=== PATIENT | female | born 1950 | race Two or more races ===

== ENCOUNTER → 2023-12-12 | Outpatient (CLI) | payer OTHER, SELFPAY | END | disposition home or self-care (01) | LOC: SLDO 15:38 | PROVIDERS: PCP Family Medicine; Referring Provider Family Medicine; Visit Provider Family Medicine | DX: N39.0 Urinary tract infection, site not specified (principal) | CPT/HCPCS: 87086 ==

== ENCOUNTER → 2024-02-16 | Outpatient (CLI) | payer OTHER, SELFPAY ==
--- NOTE | 2024-02-16 14:00 | XR_ITS ---
Examination: Bone densitometry Date and time of exam:February 16, 2024 1423 hours INDICATIONS: Hysterectomy age 51 vitamin D 3 months Technique: Lumbar spine and hip total bone mineralization values of an calculated. Peak reference and age match control results have been displayed. Findings: Lumbar spine total bone mineralization is1.213 gm/cm2. This is 1.5 standard deviations above peak reference. This is 3.7 standard deviations above age-matched controls. Hip total bone mineralization is 1.065 gm/cm2 This is 0.8 standard deviations above peak reference. This is 2.3 standard deviations above age-matched controls Impression: There is normal mineralization based on lumbar spine measurements. There is normal mineralization based on hip measurements Lumbar mineralization is increased 5.4% compared with July 16, 2021 Hip mineralization is decreased 3.0% compared with July 16, 2021
--- NOTE | 2024-02-16 14:15 | XR_ITS ---
Examination: Screening digital mammography, bilateral Computer aided detection 3-D breast Tomosynthesis, bilateral Date and time of exam: February 16, 2024 1406 hours Compared to mammograms dating to October 30, 2007 Indication: Screening Technique: Nonmagnified MLO, CC views of the breasts to been obtained, reconstructed from 3-D Tomosynthesis images. R2 computer aided detection program utilized for evaluation of suspicious masses and/or abnormal calcifications. 3-D Tomosynthesis images obtained. Findings: The breasts are heterogeneously dense, which may obscure small masses 14 mm focal asymmetry upper outer right breast posterior depth Benign calcifications Impression: BI-RADS Category 0: Incomplete: Need additional imaging evaluation 14 mm focal asymmetry upper outer right breast posterior depth, recommend follow-up spot tomographic views of this asymmetry as well as right breast sonography to complete the workup.
== END | disposition home or self-care (01) ==
LOC: CDIM 13:59
PROVIDERS: Referring Provider Nurse Anesthetist, Certified Registered; Visit Provider Nurse Anesthetist, Certified Registered
DX: Z12.31 Encounter for screening mammogram for malignant neoplasm of breast (principal); R92.8 Other abnormal and inconclusive findings on diagnostic imaging of breast; N64.89 Other specified disorders of breast
CPT/HCPCS: 77063; 77067; 77080

== ENCOUNTER → 2024-03-04 | Outpatient (CLI) | payer OTHER, SELFPAY ==
--- NOTE | 2024-03-04 09:45 | XR_ITS ---
Examination: Breast ultrasound, unilateral, right complete Date and time of exam: March 04, 2024 0939 hours INDICATIONS: Mammogram February 16, 2024 14 mm focal asymmetry upper outer right breast posterior depth Technique: Real-time mitchell scale ultrasonographic imaging performed right breast including all 4 quadrants as well as nipple retroareolar and axillary region. Findings: No cystic or solid mass IMPRESSION: BI-RADS Category 1: Negative study
== END | disposition home or self-care (01) ==
PROVIDERS: PCP Family Medicine; Referring Provider Internal Medicine; Visit Provider Internal Medicine
DX: R92.8 Other abnormal and inconclusive findings on diagnostic imaging of breast (principal)
CPT/HCPCS: 76641

== ENCOUNTER 2024-03-12 21:33 | Observation (INO) | payer OTHER, SELFPAY ==
[2024-03-12 21:34] VITALS: BMI 36.9
[2024-03-12 21:39] VITALS: BP 112/80; PULSE 82; RESP 18; TEMP 36.6; O2SAT 97
--- NOTE | 2024-03-12 22:07 | XR_ITS ---
Examination: PA chest single view TECHNIQUE: Upright PA chest single view Exam done: March 12, 2024 10:45 PM Comparison September 25, 2023 INDICATIONS: Epigastric pain today. FINDINGS: Normal heart size Lungs are clear. The osseous structures are intact IMPRESSION: No active disease
--- NOTE | 2024-03-12 22:07 | EKG_ITS ---
[facility] Test Date: 2024-03-12 Pat Name: ADRIANO GREER Department: Room: - Gender: Female Survey Project Manager: : 1950 Requested By: Chris Johnson Order Number: [id number] Reading MD: Chris Johnson Measurements Intervals [place] Rate: 82 P: -39 ME: 158 QRS: -18 QRSD: 94 T: -5 QT: 366 QTc: 428 Interpretive Statements SINUS RHYTHM LOW QRS VOLTAGE IN PRECORDIAL LEADS [QRS DEFLECTION < 1.0 mV IN CHEST LEADS] VOLTAGE CRITERIA FOR LVH [MEETS CRITERIA IN ONE OF: R(aVL), S(V1), R(V5), R(V5/V6)+S(V1)] POSSIBLE ANTERIOR MYOCARDIAL INFARCTION , OF INDETERMINATE AGE [30 ms Q WAVE IN V3/V4, OR R < 0.2 mV IN V4] Compared to ECG 09/29/2022 14:47:46 Myocardial infarct finding now present First degree AV block no longer present /store/S0/[id number]/ecg/[id number].pdf
--- NOTE | 2024-03-12 22:07 | PD.EDRME ---
Rapid Medical Screening Exam RME Arrival date/time: 03/12/24 21:33 73F with history of HTN presents to ED with several days of lower chest/epigastric pain and some N/V. Patient has some RLE swelling due to recent varicose vein procedure there. Patient denies SOB and URI symptoms. Chief Complaint: Abdominal Pain Vital signs: Vital Signs Temperature 97.8 F 03/12/24 21:39 Pulse Rate 82 03/12/24 21:39 Respiratory Rate 18 03/12/24 21:39 Blood Pressure 112/80 03/12/24 21:39 Pulse Oximetry (%) 97 03/12/24 21:39 Oxygen Delivery Method Room Air 03/12/24 21:39
[2024-03-12 22:33] LABS: Basophils # (Auto) 0.1 Thou/mm3 (0.0-0.2); Basophils % (Auto) 0 % (0-2.5); Eosinophils # (Auto) 0.1 Thou/mm3 (0.0-0.5); Eosinophils % (Auto) 0 % (0-10); Hematocrit 44.8 % (36.0-46.0); Hemoglobin 15.3 g/dL (12.0-16.0); Immature Granulocytes % (Auto) 0 % (0-0); Immature Granulocytes Auto 0.05 Thou/mm3 (0.00-0.00); Lymphocytes # (Auto) 1.3 Thou/mm3 (1.0-4.8); Lymphocytes % (Auto) 9 % (10-50); Mean Corpuscular HGB Conc 34.2 g/dl (31.0-37.0); Mean Corpuscular Hemoglobin 30.6 pg (25.0-35.0); Mean Corpuscular Volume 90 fL (80-100); Monocytes # (Auto) 0.8 Thou/mm3 (0.0-0.8); Monocytes % (Auto) 5 % (0-12); Neutrophils # (Auto) 12.4 Thou/mm3 (1.8-7.7); Neutrophils % (Auto) 85 % (37-80); Nucleated Red Blood Cell % 0 /100 WBC (0); Platelet Count 217 Thou/mm3 (140-440); White Blood Count 14.5 Thou/mm3 (3.6-11.0)
[2024-03-12 22:54] LABS: Alanine Aminotransferase 15 U/L (10-49); Albumin, Serum 4.4 gm/dL (3.4-4.8); Albumin/Globulin Ratio 1.6 (1.2-2.2); Alkaline Phosphatase 84 U/L (46-116); Anion Gap 10 (7-16); Aspartate Amino Transferase 19 U/L (0-34); BUN/Creatinine Ratio 27 Ratio (12-20); Bilirubin,Total 0.6 mg/dL (0.3-1.2); Blood Urea Nitrogen 24 mg/dL (9-23); Calcium 9.8 mg/dL (8.3-10.6); Calcium (Corrected) 9.8 mg/dL (8.5-10.1); Carbon Dioxide 26.1 mMol/L (20.0-31.0); Chloride 100 mMol/L (98-107); Creatinine (Component) 0.9 mg/dL (0.6-1.3); Estimated Creatinine Clearance 55.7 mL/min (>60); Globulin 2.7 gm/dL (2.3-3.5); Glucose 124 mg/dL (74-106); Lipase 44 U/L (12-53); Osmolality,Calculated 276 (275-295); Potassium 3.9 mMol/L (3.4-5.1); Sodium 136 mMol/L (136-145); Total Protein 7.1 gm/dL (5.7-8.2); Troponin I < 0.020 ng/mL (0.0-0.045); eGFR > 60 See Note
[2024-03-12 23:21] LABS: Collection Type, Urine Clean Catch
[2024-03-12 23:26] LABS: Bilirubin,Urine Negative (Negative); Blood,Urine 1+ (Negative); Clarity,Urine Turbid (Clear/Hazy); Color,Urine Yellow (Lt Yel-Yel); Glucose, Urine Negative (Negative); Hyaline Casts,Urine < 1 /hpf (0-1); Ketones,Urine 1+ (Negative); Leukocyte Esterase,Urine Negative (Negative); Nitrite,Urine Negative (Negative); Protein,Urine 1+ (Neg - Trace); RBC,Urine 4 /hpf (0-3); Specific Gravity,Urine 1.031 (1.001-1.035); Squamous Epithelial Cell,Urine 10 /hpf (0-5); Urobilinogen,Urine Negative mg/dL (0.0-1.0); WBC,Urine 2 /hpf (0-5)
[2024-03-12 23:33] LABS: Amphetamine/Methamp Scrn,U Negative (Negative); Barbiturate Screen,Urine Negative (Negative); Benzodiazepines Screen,Urine Negative (Negative); Benzoylecgonine Screen, Ur Negative (Negative); Fentanyl Screen,Urine Negative (Negative); Opiate Screen,Urine Negative (Negative); THC Screen,Urine Negative (Negative)
--- NOTE | 2024-03-12 23:38 | XR_ITS ---
Examination: CT abdomen with intravenous contrast CT pelvis with intravenous contrast 2-D coronal reconstructions 2-D sagittal reconstructions Date and time of exam: March 13, 2024 at 0604 hours Comparison November 28, 2020 INDICATIONS: Epigastric pain beginning 2 days ago CTDI: vol (mGy) 25.2 DLP: (mGycm) 780 Technique: Multiple axial sections of the abdomen and pelvis have been obtained. 64 slice high-resolution scanner used. 3 mm axial sections have been obtained, post intravenous injection of 60 cc Isovue-300 2-D sagittal, coronal reconstructions obtained. Low dose protocols were performed. One or more of the following dose reduction techniques were used; automated exposure control, adjustment of the mA and/or KV according to patient size, use of iterative reconstruction technique. Findings: No focal liver lesions Gallstones Gallbladder wall appears mildly thickened Spleen is nonenlarged No pancreatic mass Endstage atrophic right kidney multiple 1 to 3 mm calculi No left hydronephrosis Abdominal aortic calcification no aneurysmal dilatation There are fluid distended small bowel loops with wall thickening beginning in the lower abdomen extending into the pelvis for instance axial image 156 There is mild free fluid in the pelvis Colonic diverticulosis Urinary bladder intact Significant disc narrowing L1-L2, L2-L3 IMPRESSION: Cholelithiasis, gallbladder wall appears thickened, recommend gallbladder sonography follow-up Endstage atrophic right kidney Multiple abnormal small bowel loops in the lower abdomen and pelvis, with wall thickening and some fluid distention,, mild free fluid in the pelvis, differential would include enteritis such as Crohn's disease, ischemic small bowel, early small bowel obstruction not excluded Clinical correlation advised Consider Gastrografin small bowel series follow-up
[2024-03-13] VITALS (12 sets, daily range): BP systolic 104–130; BP diastolic 68–88; PULSE 63–88; RESP 16–21; TEMP 36.2–36.8; O2SAT 92–98; BMI 36.9
--- NOTE | 2024-03-13 04:03 | PC.NURSE ---
Initial contact with pt. Brought to RM #11 with c/o upper abd pain.
--- NOTE | 2024-03-13 04:10 | PC.NURSE ---
Dr. Frazier in room seeing pt.
--- NOTE | 2024-03-13 04:17 | PD.EDABDPN ---
ED Abdominal Pain RME/HPI General Chief Complaint: Abdominal Pain Stated complaint: ABD PAIN Arrival date/time: 03/12/24 21:33 RME / HPI RME / HPI narrative: 03/12/24 21:33 73F with history of HTN presents to ED with several days of lower chest/epigastric pain and some N/V. Patient has some RLE swelling due to recent varicose vein procedure there. Patient denies SOB and URI symptoms. --------- Dr. Frazier?s Main ED Evaluation: 73yo female with pmhx HTN presents to the ED for a chief complaint of epigastric pain x 1700. Patient states she ate a small piece of pizza and some chicken soup, reporting she started having epigastric pain. She reports associated nausea, vomiting, and a decreased appetite. She denies any diarrhea, fever, chills or any other associated symptoms. She denies any history of similar symptoms. PSH includes hysterectomy. No known allergies. Related Data Home Medications ?Medication ?Instructions ?Recorded ?Confirmed atenolol 25 mg tablet (Tenormin) 25 mg PO QAM #0 tabs 03/01/16 Previous Rx's ?Medication ?Instructions ?Recorded ibuprofen 600 mg tablet 600 mg PO Q8HR PRN PAIN #30 tabs 03/01/16 Allergies Allergy/AdvReac Type Severity Reaction Status Date / Time NKA* Allergy Uncoded 03/01/16 18:22 Review of Systems Review of Systems Systems Reviewed: All systems reviewed, normal except as documented Narrative Review of Systems: Gen: No fever, no chills, no weight loss, + decreased appetite EYES: No discharge, no visual changes, no pain HEENT: No ear pain, no congestion, no sore throat PULM: No shortness of breath, no cough, no congestion CV: No chest pain, no dyspnea on exertion, no palpitations GI: + nausea, + vomiting, no diarrhea, + pain, no constipation : No frequency, no urgency, no dysuria Musc/skel: No joint pain, no back pain Skin: No rash. Warm and dry. Psyc: No hallucinations, no depression Heme/Lymph: No easy bleeding or bruising tendencies Neuro: No weakness, no headache Past Medical History Social History SMOKING STATUS: Never smoker ED Exam Narrative Physical exam: GENERAL APPEARANCE: alert and oriented x 4, well-developed, well-nourished, no acute distress VITALS: All vitals were reviewed and the pulse ox is 97% on room air, which is normal according to my interpretation. HEENT: Normocephalic, atraumatic; pupils equal, round, reactive to light; EOMI; mucous membranes pink, moist; oropharynx clear NECK: Supple LUNGS: CTABL; no wheezes, no rales, no rhonchi HEART: Regular rate, regular rhythm; normal S1, S2; no murmurs ABDOMEN: non distended; normal BS; soft, diffuse tenderness with more severe epigastric tenderness, voluntary guarding, no rigidity, no rebound; no masses, no organomegaly, no hernia BACK: no CVA tenderness EXTREMITIES: atraumatic; no edema NEUROLOGIC: awake; alert and oriented x4; cranial nerves II-XII grossly intact; no focal sensory or motor deficits PSYCHIATRIC: appropriate mood and affect SKIN: warm, dry, normal color; no rashes Course Course Course Narrative: CXR is ordered for determining the etiology of chest pain per YOHANA Johnson. Quality Measures none Orders Category Date Time Status CT Screening NOW Care 03/12/24 23:38 Active Call Center Consultant STAT Care 03/13/24 04:23 Active Continuous Pulse Oximetry STAT Care 03/13/24 04:23 Active EKG (ED ONLY) *Do not use* NOW Care 03/12/24 22:07 Completed Insert IV NOW Care 03/12/24 23:38 Active Insert IV STAT Care 03/13/24 04:23 Active NPO STAT Care 03/13/24 04:[address] abdomen pelvis w con Stat Exams 03/12/24 23:38 Ordered EKG (ED Only) Stat Exams 03/12/24 22:07 Draft XR chest 1V portable Stat Exams 03/12/24 22:07 Completed CBC Stat Lab 03/12/24 22:26 Completed Comprehensive Metabolic Panel Stat Lab 03/12/24 22:26 Completed Drug Screen,Urine Stat Lab 03/12/24 23:05 Completed Lipase Stat Lab 03/12/24 22:26 Completed Magnesium Stat Lab 03/13/24 04:23 Ordered Troponin I Stat Lab 03/12/24 22:26 Completed Urinalysis Stat Lab 03/12/24 23:05 Completed Famotidine Inj [Pepcid Inj] Med 03/13/24 04:33 Discontinued 20 mg IVP X1 ONE Famotidine [Pepcid] Med 03/13/24 04:23 Discontinued 20 mg PO X1 ONE Morphine Inj Med 03/13/24 04:23 Active 2 mg IVP Q30M PRN Ondansetron Inj [Zofran Inj] Med 03/13/24 04:25 Discontinued 4 mg IV X1 ONE Sodium Chloride 0.9% 1000 ml [Ns] 1,000 ml Med 03/13/24 04:23 Discontinued IV 999 mls/hr Vital Signs Vital signs: Vital Signs Temperature 97.8 F 03/12/24 21:39 Pulse Rate 82 03/12/24 21:39 Respiratory Rate 18 03/12/24 21:39 Blood Pressure 112/80 03/12/24 21:39 Pulse Oximetry (%) 97 03/12/24 21:39 Oxygen Delivery Method Room Air 03/12/24 21:39 Abdominal Pain MDM MDM Narrative MDM Narrative:: Scribe Attestation: 03/13/24 - Mercedes Plummer am scribing for and in the presence of Dr. Frazier. Patient data External records reviewed:: [facility] previous records (Per chart review, patient has no relevant previous ED visits.) Clinical information provided by:: patient Social determinants that could affect healthcare access:: none Patient has the following chronic illnesses:: HTN How is presenting disease/condition affected by chronic disease/condition?: uneffected by Evaluation data The following diagnostics were reviewed and interpreted by me:: lab results, radiology exam(s) and EKG tracing(s) Lab and/or radiology exams considered but not ordered:: none Interpretation Summary: WBC count is elevated at 14.5, BUN is 24, troponin is normal, UA is unremarkable, UDS is negative, according to my interpretation. EKG done at 2214, NSR, rate of 82, left axis deviation, no ectopy, T-wave inversion in lead III and avF, no STEMI, according to my interpretation. --------- [facility] Report Signed Patient: ADRIANO GREER. Record#: [id number] Birthdate: 1950 Age/Sex: 73 / F Location: [facility] Attending Dr: Ordering Physician: Chris Johnson PA-C Date of Service: 03/12/24 Procedure(s): XR chest 1V portable Accession Number(s): [id number] cc: Miguel Soler MD; Sara Xiao MD; Chris Johnson PA-C~ Examination: PA chest single view TECHNIQUE: Upright PA chest single view Exam done: March 12, 2024 10:45 PM Comparison September 25, 2023 INDICATIONS: Epigastric pain today. FINDINGS: Normal heart size Lungs are clear. The osseous structures are intact IMPRESSION: No active disease Dictated By: Miguel Soler MD Signed By: <Electronically signed by Miguel Soler MD in OV> 03/12/24 1286 Medications / Prescriptions Medications or Prescriptions considered but not ordered:: none Medication administrations:: Medication Administration History Morphine Sulfate (Morphine Sulf Inj 10 Mg/Ml Vial) 2 mg IVP Q30M PRN PRN Reason: PAIN Stop: 03/13/24 06:23 Last Admin: 03/13/24 04:39 Dose: 2 mg Documented By: LB Discontinued Medications Famotidine (Famotidine 20 Mg Tablet) 20 mg PO X1 ONE Stop: 03/13/24 04:24 Famotidine (Famotidine Inj 10 Mg/Ml Vial 2 Ml) 20 mg IVP X1 ONE Stop: 03/13/24 04:34 Last Admin: 03/13/24 04:45 Dose: 20 mg Documented By: SOFÍA Sodium Chloride (Ns) 1,000 mls @ 999 mls/hr IV .Q1H1M ONE Stop: 03/13/24 05:23 Last Admin: 03/13/24 04:27 Dose: 999 mls/hr Documented By: SOFÍA Ondansetron HCl (Ondansetron Inj 2 Mg/Ml Inj 2 Ml) 4 mg IV X1 ONE; Protocol Stop: 03/13/24 04:26 Last Admin: 03/13/24 04:36 Dose: 4 mg Documented By: SOFÍA see above Consultations Consultation(s) initiated? (list below): No Diagnosis Differential diagnosis abdominal pain: pancreatitis, small bowel obstruction and other (cholecystitis, choledocolithiasis, gallstone pancreatitis, gallstone ileus) Most likely diagnosis given after review of the tests above:: pending at sign out Admission Indicated Admission indicated?: not indicated Admission Request Was there a request for admission?: No Disposition Plan Disposition Plan: other (specify) (Signed out to Dr. Avitia at [address] abdomen pelvis and US gallbladder.) Discharge Plan Prescriptions/Referrals Prescriptions/Med Rec: No Action atenolol [Tenormin] 25 MG tablet 25 mg PO QAM Qty: 0 ibuprofen 600 MG tablet 600 mg PO Q8HR PRN (Reason: PAIN) Qty: 30 0RF Referrals: Sara Xiao MD [Primary Care Provider] - In 1 week Problem List Clinical Impression: Abdominal pain Patient/Caregiver Discharge Instructions Print Language: Swedish
[2024-03-13] MEDS: SODIUM CHLORIDE 0.9% 1000 ML 1,000 ML 999 ML IV ×2 (04:27→11:31)
[2024-03-13] MEDS: ONDANSETRON INJ 2 MG/ML INJ 2 ML 4 MG IV ×3 (04:36→20:37)
[2024-03-13] MEDS: MORPHINE SULF INJ 10 MG/ML VIAL 2 MG IVP ×2 (04:39→06:39)
[2024-03-13] MEDS: FAMOTIDINE INJ 10 MG/ML VIAL 2 ML 20 MG IVP (04:45)
--- NOTE | 2024-03-13 05:35 | XR_ITS ---
Examination: Abdomen sonogram, Limited Date and time of exam: March 13, 2024 0730 hours INDICATIONS: Upper abdominal pain with nausea vomiting today Technique: Real-time mitchell scale transabdominal sonographic images of the upper abdomen obtained. Findings: Multiple gallstones Gallbladder wall 0.2 cm no edema Common bile duct 0.3 cm Pancreatic head 2.1 cm Liver 13.4 cm no liver lesions Normal hepatopedal portal venous flow Patent IVC IMPRESSION:: Cholelithiasis, negative for cholecystitis
[2024-03-13 06:01] LABS: Magnesium 1.9 mg/dL (1.6-2.6)
--- NOTE | 2024-03-13 06:57 | PD.EDADDENDU ---
Emergency Room Addendum Addendum Narrative: 0600 care assumed by previous shift provider. Past medical, surgical, social and family history reviewed. Vitals and home medications reviewed. Results and treatment plan discussed. I will assume the care of the patient at this time and will follow the patient, pending final disposition. On my encounter, patient notes significant improvement in pain after receiving IV morphine. She has a history of total hysterectomy and tubal ligation, who describes to me onset of primarily epigastric pain and bilateral lower quadrant pain after eating a pizza at around 3 PM yesterday. She tried to nurse it with an additional chicken soup which appeared to make the pain worse and persisted through the night. She had 4 episodes of emesis with this. She has not had a bowel movement since and is noting seeing significant decrease in flatus but a lot of burping. Review of electronic medical records reveals previous CT and ultrasound suggestive of cholelithiasis. I have reviewed this with her and she does remember the tests being done at that time but does not recall being told she has gallstones. Examination, patient is resting comfortably, pleasant, nontoxic. Abdominal exam reveals primarily epigastric pain, however it does elicit significant belching and vomiting. She has lesser right upper quadrant pain, negative Richards sign. Also pain in the bilateral lower quadrant which also initiate significant belching and vomiting immediately afterwards. No rebound no guarding. I also reviewed the images of the CT scan and note a significant amount of small bowel thickening, dilation, and fluid collection within in the pelvic region. There were no air-fluid levels consistent of an overt small bowel obstruction lactic acid was sent which is negative which is less suspicious for ischemic bowel. She has persistent belching and vomiting here, concerning for an early small bowel obstruction. Patient was admitted to the hospitalist service for small bowel follow-through for confirmation testing and further management of her persistent belching and nausea and vomiting.
--- NOTE | 2024-03-13 10:04 | PC.NURSE ---
Patient sleeping with no signs of discomfort. Will continue to monitor.
[2024-03-13 11:29] LABS: Lactate (Lactic Acid) 1.6 mMol/L (0.4-2.0)
--- NOTE | 2024-03-13 11:38 | PC.NURSE ---
Dr. Avitia is at bedside to re-evaluate patient. patient with continued complaint of nausea. medication given. Will continue to monitor.
--- NOTE | 2024-03-13 13:47 | ESHP_ITS ---
<Statement entered by Mauricio Oreilly MD - 03/14/24 13:42> Agree with plan and examination finding on the note below. Patient seen and examined at bedside today. Labs and imaging reviewed. Patient care discussed with my attending Dr. Orozco and co-resident Dr. England. Documentation for date of: 03/13/24 HPI History of Present Illness Chief complaint: Vomiting, Abdominal Pain History of present illness: HPI: Patient is a 73-year-old female with past medical history significant for essential hypertension, varicose veins, solitary left kidney, atrial flutter?paroxysmal not on beta-blockers presenting with a chief complaint of vomiting and abdominal pain. Patient follows up with urologist, Dr. Fraire, engineering programmer, Dr Harris, assistant manager Dr. Stanley and vascular surgeon, Dr. Najera. Patient stated that yesterday morning she began to experience generalized abdominal pain more so in the epigastrium. Described as 6?7 in intensity, cramping, constant, no radiation and no aggravating or relieving factors. Subsequently around 2 PM she had a slice of pizza and her abdominal pain was further exacerbated. She then made cabbage soup and after a few spoonfuls she began to vomit. Vomit was described as food contents, denied any hematemesis, coffee-ground emesis, bile emesis, diarrhea, hematochezia and melena. Of note patient says that her last bowel movement was yesterday a.m. currently she is still passing minimal flatus. On March 10 patient had left lower extremity IV sclerotherapy for her varicose veins. ED course: BP 110/69, pulse 87, RR 20, temp 98.3 F, SpO2 96% on room air. Lab significant for WBC 14.5, Hb 15.3, HCT 44.8, BUN 24, CR 0.9, LA 1.6. Urinalysis significant for 1+ protein, 1+ ketone and 1+ blood. Abdominal/pelvis CT completed on 03/12/2024 findings include: Cholelithiasis. End-stage atrophic right kidney. Multiple small bowel loops in lower abdomen and pelvis with wall thickening and some fluid distention. Early small bowel obstruction not excluded. Gallbladder ultrasound completed on 03/13/2024 findings include cholelithiasis, negative for cholecystitis. In the ED patient received normal saline 2L IVF bolus, ondansetron 4 Mg IV x 2, morphine 2 Mg IV x 2, famotidine 20 Mg IV x 2 Patient will be admitted for workup and management of early SBO Review of Systems Review of Systems Narrative Review of Systems: GENERAL: Denies fever/chills or diaphoresis. HEENT: Denies headaches or visual changes. Denies discharge. Neuro: Denies unusual weakness or difficulty speaking. CARDIO: Denies chest pain or palpitations. PULM: Denies SOB, coughing or wheezing. GI: As Above URO: Denies burning/itching/pain/urinary changes. MSK/EXT/SKIN: Denies joint/skeletal/muscle pain, issues/changes in upper or lower extremities, itchiness, or superficial pain. PSYCH: Cooperative, pleasant mood & affect. The rest of the review of systems is otherwise negative. Past Medical History Past Medical History Comments [facility] COMMENT: Past medical history: ?Essential hypertension ? Varicose veins ? Solitary left kidney ? History of atrial flutter Medication list: ?Lisinopril 10 Mg p.o. daily Past surgical history: ? Total abdominal hysterectomy ? BTL Allergies: NKFDA Social history: Occupational History: Education Level: Marital Status: with7 kids Tobacco use: Denies ETHO use: Denies Illicit drug use: Denies Social History Note: lives with and daughter. Ambulates independently and carries out all ADLs Family History: Sister?breast cancer Brother?throat cancer Dad?CHF Exam Vital Signs Temp Pulse Resp BP Pulse Ox O2 Del Method 98.3 F 67 20 110/69 96 Room Air 03/13/24 11:35 03/13/24 11:35 03/13/24 11:35 03/13/24 11:35 03/13/24 11:35 03/13/24 11:35 Narrative Exam Constitutional Alert, oriented x 3 and comfortable. Elderly female HEENT Vision grossly intact. Patent nares. Trachea midline Respiratory Chest normal on inspection and clear auscultation bilaterally Cardiovascular S1 and S2 audible, RRR. No murmurs carotid bruit. No gross JVD. Abdominal Soft, tender to palpation in epigastrium and lower abdomen. Bowel sounds present Genitourinary No bladder tenderness, no flank pain. Normal to palpation Musculoskeletal Extremities tone within normal limits. Trace lower extremity edema with bilateral varicose veins seen Neurological CN II - XII grossly intact. Extremity motor and sensation grossly intact. Skin Warm, dry and intact. No apparent lesions. Psychiatric Patient has good affect, is cooperative Results: Labs 03/12/24 22:26 03/12/24 22:26 Labs: Short CBC 03/12/24 Range/Units 22:26 WBC 14.5 H (3.6-11.0) Thou/mm3 Hgb 15.3 (12.0-16.0) g/dL Hct 44.8 (36.0-46.0) % Plt Count 217 (140-440) Thou/mm3 BMP 03/12/24 22:26 Sodium 136 Potassium 3.9 Chloride 100 Carbon Dioxide 26.1 BUN 24 H Creatinine 0.9 Glucose 124 H Calcium 9.8 Cardiac Enzymes 03/12/24 Range/Units 22:26 Troponin I < 0.020 (0.0-0.045) ng/mL Liver Function 03/12/24 Range/Units 22:26 Total Bilirubin 0.6 (0.3-1.2) mg/dL AST 19 (0-34) U/L ALT 15 (10-49) U/L Alkaline Phosphatase 84 (46-116) U/L Albumin 4.4 (3.4-4.8) gm/dL Urine 03/12/24 Range/Units 23:05 Urine Color Yellow (Lt Yel-Yel) Urine Clarity Turbid A (Clear/Hazy) Urine pH 6.0 (5.0-7.0) Ur Specific [place] 1.031 (1.001-1.035) Urine Protein 1+ A (Neg - Trace) Urine Glucose (UA) Negative (Negative) Quality Measures Quality Measures none Advance care planning discussed with:: patient Medications Home Medications and Allergies Home Medications ?Medication ?Instructions ?Recorded ?Confirmed ?Type atenolol 25 mg tablet (Tenormin) 25 mg PO QAM #0 tabs 03/01/16 03/13/24 History lisinopril 10 mg tablet 10 mg PO QDAY 03/13/2403/13 History Allergies Allergy/AdvReac Type Severity Reaction Status Date / Time NKA* Allergy Uncoded 03/01/16 18:22 Visit Medications Acetaminophen (Acetaminophen Supp 650 Mg Supp) 650 mg ND Q6HR PRN PRN Reason: Fever > 100.3 Stop: 04/12/24 13:38 Albuterol/Ipratropium (Albuterol/Ipratropium (Duoneb) Rt Allegra 3 Ml Nebu) 3 ml INH Q4HR PRN PRN Reason: SHORTNESS OF BREATH OR WHEEZE Stop: 04/12/24 13:38 Sodium Chloride (Ns) 1,000 mls @ 100 mls/hr IV .Q10H ONE Stop: 03/13/24 23:40 Morphine Sulfate (Morphine Sulf Inj 10 Mg/Ml Vial) 2 mg IVP Q4HR PRN PRN Reason: PAIN SCALE 7-10 (Severe Stop: 03/18/24 13:38 Ondansetron HCl (Ondansetron Inj 2 Mg/Ml Inj 2 Ml) 4 mg IV Q6H PRN; Protocol PRN Reason: NAUSEA OR VOMITING Stop: 04/12/24 13:38 Pantoprazole Sodium (Pantoprazole Inj 40 Mg Vial) 40 mg IVP QDAY ARIADNE Stop: 04/13/24 08:59 Discontinued Medications Famotidine (Famotidine 20 Mg Tablet) 20 mg PO X1 ONE Stop: 03/13/24 04:24 Last Admin: 03/13/24 08:29 Dose: Not Given Famotidine (Famotidine Inj 10 Mg/Ml Vial 2 Ml) 20 mg IVP X1 ONE Stop: 03/13/24 04:34 Last Admin: 03/13/24 04:45 Dose: 20 mg Sodium Chloride (Ns) 1,000 mls @ 999 mls/hr IV .Q1H1M ONE Stop: 03/13/24 05:23 Last Infusion: 03/13/24 07:30 Dose: Infused Sodium Chloride (Ns) 1,000 mls @ 999 mls/hr IV .Q1H1M ONE Stop: 03/13/24 11:31 Last Infusion: 03/13/24 13:05 Dose: Infused Morphine Sulfate (Morphine Sulf Inj 10 Mg/Ml Vial) 2 mg IVP Q30M PRN PRN Reason: PAIN Stop: 03/13/24 06:23 Last Admin: 03/13/24 06:39 Dose: 2 mg Ondansetron HCl (Ondansetron Inj 2 Mg/Ml Inj 2 Ml) 4 mg IV X1 ONE; Protocol Stop: 03/13/24 04:26 Last Admin: 03/13/24 04:36 Dose: 4 mg Ondansetron HCl (Ondansetron Inj 2 Mg/Ml Inj 2 Ml) 4 mg IV X1 ONE; Protocol Stop: 03/13/24 11:21 Last Admin: 03/13/24 11:30 Dose: 4 mg Assessment & Plan Plan Patient is a 73-year-old female with past medical history significant for essential hypertension, varicose veins, solitary left kidney, atrial flutter?paroxysmal not on beta-blockers presenting with a chief complaint of vomiting and abdominal pain. Patient will be admitted for workup and management of early SBO. 1. Likely early SBO 2. Vomiting 3. Abdominal pain Patient presented with 2 episodes of vomiting and abdominal pain for 1 day Patient is currently passing flatus but last bowel movement was yesterday a.m. On exam patient had severe tenderness to palpation in the epigastrium and lower abdomen Abdomen/pelvis CT showed distended small bowel loops suspicious for early SBO Plan: ? N.p.o. ? NG feeding on intermittent suction ? Clamp NG after suction and administer Gastrografin oral contrast ? Small bowel series x-ray 4. Essential hypertension Currently patient's BP 110/69 Plan: ? Labetalol 5 Mg IV every 10 minutes as needed for SBP greater than 180 5. Atrial flutter?paroxysmal EKG on admission significant for sinus rhythm, low voltage complexes in precordial leads, rate [address] changes. Plan: ? Telemetry monitoring 6. Solitary left kidney Plan: ? Avoid nephrotoxic agents 7. Bilateral lower extremity varicose veins Plan: ? Continue outpatient follow-up with vascular surgeon Health maintenance: Disposition: Small bowel series Diet: NPO Lines: pIVs GI Prophylaxis: Pantoprazole Thrombo Prophylaxis: Heparin Code status: FULL CODE Plan of care discussed with Attending Dr. Orozco and PGY3 Dr. Denilson England MD PGY 1 Attending Provider Attestation/Addendum 73-year-old female who was recently started on lisinopril for high blood pressure. The patient developed nausea vomiting and periumbilical pain last night. Patient is being admitted for small bowel obstruction. She has an NG tube. Ultrasound showed cholelithiasis with no cholecystitis. She has leukocytosis most likely secondary to emesis. The patient has normal liver function tests..
--- NOTE | 2024-03-13 13:51 | XR_ITS ---
Examination: AP chest single view Technique: AP portable upright chest single view Exam date and time: March 13, 2024 1405 hrs. Indications: Post orogastric tube placement. Findings: Orogastric tube is in the stomach, the tip is below the level of the film Mild prominence left ventricle No pneumonia or pulmonary edema Impression: The orogastric tube is in the stomach, the tip is below the level of the film
[2024-03-13] MEDS: SODIUM CHLORIDE 0.9% 1000 ML 1,000 ML 100 ML IV (14:14)
--- NOTE | 2024-03-13 15:33 | XR_ITS ---
Examination: Small bowel series Abdomen AP supine 5 views Exam date and time: March 13, 2024 1718 hrs. Indications: Vomiting today Technique And Findings: Frame Wirer film orogastric tube in satisfactory position AP supine abdomen Patient received 120 cc Gastrografin through the orogastric tube Films at 1.5 hours immediate and 30 minutes Contrast present in small bowel but contrast also present throughout the colon on the 1.5 hour film Impression: Negative for small bowel obstruction No further films are needed
[2024-03-13] MEDS: HEPARIN SOD INJ 5000 UNIT/ML VIAL SC (20:28)
--- NOTE | 2024-03-13 22:56 | PC.NURSE ---
MD Gatica made aware that pts small bowel series is done and shows no bowel obstruction, asked him if he wants to connect NG tube to LIS or keep it clamped per MD to leave it clamped at this time.
--- NOTE | 2024-03-13 23:13 | PC.NURSE ---
MD Gatica made aware that IV fluids ordered only 1 bag and no more to follow,pt is NPO, per MD just follow the order no more bag to follow at this time.
[2024-03-14] VITALS (8 sets, daily range): BP systolic 110–142; BP diastolic 61–82; PULSE 66–82; RESP 16–98; TEMP 36.1–36.7; O2SAT 93–99
--- NOTE | 2024-03-14 02:50 | PC.NURSE ---
Hat placed on toilet for stool sample.
[2024-03-14 06:08] LABS: Basophils % (Auto) 0 % (0-2.5); Eosinophils # (Auto) 0.1 Thou/mm3 (0.0-0.5); Eosinophils % (Auto) 2 % (0-10); Hematocrit 39.7 % (36.0-46.0); Hemoglobin 13.1 g/dL (12.0-16.0); Immature Granulocytes % (Auto) 0 % (0-0); Immature Granulocytes Auto 0.02 Thou/mm3 (0.00-0.00); Lymphocytes # (Auto) 1.8 Thou/mm3 (1.0-4.8); Lymphocytes % (Auto) 26 % (10-50); Mean Corpuscular Hemoglobin 30.6 pg (25.0-35.0); Mean Corpuscular Volume 93 fL (80-100); Monocytes # (Auto) 0.6 Thou/mm3 (0.0-0.8); Monocytes % (Auto) 8 % (0-12); Neutrophils # (Auto) 4.2 Thou/mm3 (1.8-7.7); Neutrophils % (Auto) 63 % (37-80); Nucleated Red Blood Cell % 0 /100 WBC (0); Platelet Count 170 Thou/mm3 (140-440); RDW Standard Deviation 44.1 fL (36.4-46.3); Red Blood Count 4.28 Miln/mm3 (4.00-5.20); White Blood Count 6.7 Thou/mm3 (3.6-11.0)
[2024-03-14 06:33] LABS: Glucose Estimated Average 103 mg/dL (80-131); Hemoglobin A1C 5.2 % Hgb (4.8-6.0)
[2024-03-14 06:41] LABS: Alanine Aminotransferase 11 U/L (10-49); Albumin, Serum 3.8 gm/dL (3.4-4.8); Albumin/Globulin Ratio 1.5 (1.2-2.2); Alkaline Phosphatase 71 U/L (46-116); Anion Gap 10 (7-16); Aspartate Amino Transferase 15 U/L (0-34); BUN/Creatinine Ratio 21 Ratio (12-20); Bilirubin,Total 0.7 mg/dL (0.3-1.2); Blood Urea Nitrogen 17 mg/dL (9-23); Calcium 8.5 mg/dL (8.3-10.6); Calcium (Corrected) 8.7 mg/dL (8.5-10.1); Carbon Dioxide 24.9 mMol/L (20.0-31.0); Cardiac Risk Estimate 2.5 RATIO (3.7-5.6); Chloride 105 mMol/L (98-107); Cholesterol 168 mg/dL (132-200); Creatinine (Component) 0.8 mg/dL (0.6-1.3); Estimated Creatinine Clearance 62.7 mL/min (>60); Globulin 2.5 gm/dL (2.3-3.5); Glucose 81 mg/dL (74-106); HDL Cholesterol 67 mg/dL (40-60); LDL Cholesterol,Calculated 81 mg/dL (0-130); Magnesium 2.1 mg/dL (1.6-2.6); Osmolality,Calculated 279 (275-295); Phosphorous 2.2 mg/dL (2.4-5.1); Potassium 3.7 mMol/L (3.4-5.1); Sodium 140 mMol/L (136-145); Thyroid Stimulating Hormone 3.22 uIU/mL (0.55-4.78); Total Protein 6.3 gm/dL (5.7-8.2); Triglycerides 100 mg/dL (30-150); eGFR > 60 See Note
[2024-03-14] MEDS: PANTOPRAZOLE INJ 40 MG VIAL IVP (09:17)
[2024-03-14] MEDS: HEPARIN SOD INJ 5000 UNIT/ML VIAL SC ×2 (09:17→20:20)
--- NOTE | 2024-03-14 11:42 | PC.NURSE ---
Ok to remove chest leads for pt to shower per MD
--- NOTE | 2024-03-14 13:24 | PC.SS ---
Ignacia Sotomayor is 73-year-old female admitted to Med-Surg for SBO. SS conducted bedside contact with the patient to complete initial assessment and to discuss discharge planning.? Patient confirmed demographic information. Patient identifies her dtr Ruma Cowart [phone] and Karin Earl [phone] as her surrogate decision maker. Patient resides at home with her . Pt states she is typically able to complete all ADL?s independently, no need for any source of DME. Pts PCP is Dr. Xiao (last visit 1 week ago) and her pharmacy of choice is [facility] on [address]. DC options discussed, pt wishes to return home. Pts family will provide transportation upon DC. No further intervention required at this time, social sciences lecturer would be available to address any further concerns. DC Plan: Home Contact: Ruma Cowart [phone] and Karin Earl [phone] PCP: Ninoska
[2024-03-14] MEDS: SENNA TABLET 1 TAB PO (13:44)
--- NOTE | 2024-03-14 16:29 | ESPR_ITS ---
Documentation for date of: 03/14/24 Subjective Subjective Interval history: 03/14/2024: Overnight patient's Gastrografin test resulted negative with no finding of SBO, patient passing flatus but has had persistent abdominal pain. This morning (03/14/2024), patient seen and examined ambulating out of hospital bed and has complete resolution of abdominal pain. As such, discontinued patient's NG tube and started patient on a clear liquid diet which we will advance as she tolerates. General surgery, Dr. Riddle, consulted in regards to patient's cholelithiasis and whether or not it is he believes the patient is safe to be discharged. We will wait for his recommendations and continue to monitor patient while advancing diet. Exam Vital Signs Temp Pulse Resp BP Pulse Ox O2 Del Method 97.3 F 71 18 136/67 H 99 Room Air 03/14/24 12:00 03/14/24 12:00 03/14/24 12:00 03/14/24 12:00 03/14/24 12:00 03/14/24 12:00 Narrative Exam Physical Exam: GENERAL: Awake, answering questions appropriately, appears stated age HEENT: NC/AT. Moist mucosa. PERRLA/EOMI. CARDIO: Heart RRR, no obvious murmurs, no JVD. PULM: No coughing or visible SOB. Lungs CTA B/L. GI: Abdomen soft, NT/ND, +BS. SKIN/MSK/EXT: No wounds/discoloration/rashes/edema/amputations noted. +Pedal pulses present B/L. NEURO: Oriented x3, no focal neurological deficits, Moves extremities x4. Objective Labs 03/15/24 05:01 03/15/24 05:01 Labs: Laboratory Results - last 24 hr 03/14/24 04:49 WBC 6.7 D RBC 4.28 Hgb 13.1 D Hct 39.7 MCV 93 MCH 30.6 MCHC 33.0 RDW Std Deviation 44.1 Plt Count 170 D Neut % (Auto) 63 Lymph % (Auto) 26 [place] % (Auto) 8 Eos % (Auto) 2 Baso % (Auto) 0 Neut # (Auto) 4.2 Lymph # (Auto) 1.8 [place] # (Auto) 0.6 Eos # (Auto) 0.1 Baso # (Auto) 0.0 Immature Gran # (Auto) 0.02 H Absolute Nucleated RBC 0.00 Immature Gran % 0 Nucleated RBC % 0 Sodium 140 Potassium 3.7 Chloride 105 Carbon Dioxide 24.9 Anion Gap 10 BUN 17 Creatinine 0.8 Estim Creat Clear Calc 62.7 eGFR > 60 BUN/Creatinine Ratio [address] Glucose [address] Glu mg/dL 103 Hemoglobin A1c 5.2 Calculated Osmolality 279 Calcium 8.5 Corrected Calcium 8.7 Phosphorus 2.2 L Magnesium 2.1 Total Bilirubin 0.7 AST 15 ALT 11 Alkaline Phosphatase 71 Total Protein 6.3 Albumin 3.8 D Globulin 2.5 Albumin/Globulin Ratio 1.5 Triglycerides 100 Cholesterol 168 LDL Cholesterol, Calc 81 HDL Cholesterol 67 H Cholesterol/HDL Ratio 2.5 L TSH 3.22 Quality Measures Quality Measures none Advance care planning discussed with:: patient Assessment & Plan Assessment Current Active Medications: Generic Name Dose Route Start Last Admin Trade Name Freq PRN Reason Stop Dose Admin Acetaminophen 650 mg 03/13/24 13:39 Acetaminophen Supp 650 Mg Supp VT 04/12/24 13:38 Q6HR PRN Fever > 100.3 Albuterol/Ipratropium 3 ml 03/13/24 13:39 Albuterol/Ipratropium (Duoneb) Rt Allegra 3 Ml Nebu INH 04/12/24 13:38 Q4HR PRN SHORTNESS OF BREATH OR WHEEZE Heparin Sodium (Porcine) 5,000 unit 03/13/24 21:00 03/14/24 09:17 Heparin Sod Inj 5000 Unit/Ml Vial SC 03/27/24 20:59 5,000 unit BID ARIADNE Administration Labetalol HCl 5 mg 03/13/24 17:15 Labetalol Inj 5 Mg/Ml Vial 20 Ml IVP 04/12/24 17:14 Q10MIN PRN SBP >180 Morphine Sulfate 2 mg 03/13/24 13:39 Morphine Sulf Inj 10 Mg/Ml Vial IVP 03/18/24 13:38 Q4HR PRN PAIN SCALE 7-10 (Severe Ondansetron HCl 4 mg 03/13/24 13:39 03/13/24 20:37 Ondansetron Inj 2 Mg/Ml Inj 2 Ml IV 04/12/24 13:38 4 mg Q6H PRN Administration NAUSEA OR VOMITING Protocol Pantoprazole Sodium 40 mg 03/14/24 09:00 03/14/24 09:17 Pantoprazole Inj 40 Mg Vial IVP 04/13/24 08:59 40 mg QDAY ARIADNE Administration Sennosides 1 tab 03/14/24 11:30 03/14/24 13:44 Senna Tablet PO 04/13/24 11:29 1 tab QDAY ARIADNE Administration Protocol Plan 73-year-old female with past medical history significant for essential hypertension, varicose veins, solitary left kidney, atrial flutter?paroxysmal not on beta-blockers presenting with a chief complaint of vomiting and abdominal pain. Patient will be admitted for workup and management of early SBO. #Cholelithiasis #SBO, ruled out #Intractable vomiting Patient presented with 2 episodes of vomiting and abdominal pain for [address] Abd/P initially showed suspicion for SBO along with cholelithiasis and gallbladder wall thickening U/S Gallbladder showed: Multiple gallstones Gallbladder wall 0.2 cm no edema Common bile duct 0.3 cm Pancreatic head 2.1 cm Liver 13.4 cm no liver lesions. Normal hepatopedal portal venous flow. Patent IVC Gastrograffin test ruled out SBO NG tube discontinued Plan: Liquid diet, will advance as patient tolerates Dr. Riddle, general surgery, consulted appreciate recommendations #Essential hypertension Home dose of atenolol 25 mg p.o. every morning and lisinopril 10 mg p.o. daily Plan: Holding home medications Labetalol 5 Mg IV every 10 minutes as needed for SBP greater than 180 #Atrial flutter?paroxysmal EKG on admission significant for sinus rhythm, low voltage complexes in precordial leads, rate [address] changes. Patient currently normal, sinus rhythm Plan: Telemetry monitoring Continue DVT prophylaxis #Solitary left kidney Chronic medical condition Plan: Avoid nephrotoxic agents #Bilateral lower extremity varicose veins Chronic medical condition Plan: Continue outpatient follow-up with vascular surgeon Health Management: Bowel: Senna Diet: Clear liquid, advance as tolerated Lines: PIVs GI Prophylaxis: Protonix DVT Prophylaxis: Heparin Disposition: Pending Dr. Riddle (general surgery) recommendations Code; Full Patient seen and examined with attending Dr. Orozco and senior resident Dr. Curtis Ceron, PGY-1 Senior resident attestation: Patient evaluated and examined at the bedside, plan of care discussed with rest of the team including my attending physician, except as noted. Curtis PGY2 Attending Provider Attestation/Addendum Patient admitted for sbo, possible gallstone ileus, surgical consult pending. Discussed with housestaff.
--- NOTE | 2024-03-14 18:46 | PD.SURCONS ---
HPI Consult details Consult date: 03/14/24 Reason for consultation narrative: The patient was seen on consultation for small bowel obstruction. But her small bowel obstruction has cleared with Gastrografin. Ultrasound shows gallstones with thickening of the gallbladder wall Meds Home Medications and Allergies Home Medications ?Medication ?Instructions ?Recorded ?Confirmed ?Type atenolol 25 mg tablet (Tenormin) 25 mg PO QAM #0 tabs 03/01/16 03/13/24 History lisinopril 10 mg tablet 10 mg PO QDAY 03/13/24 03/13/24 History Allergies Allergy/AdvReac Type Severity Reaction Status Date / Time No Known Allergies Allergy Unverified 03/13/24 17:26 Exam Vital Signs Temp Pulse Resp BP Pulse Ox O2 Del Method 97.0 F 66 16 142/82 H 98 Room Air 03/14/24 16:00 03/14/24 16:00 03/14/24 16:00 03/14/24 16:00 03/14/24 16:00 03/14/24 16:00 Assessment & Plan Additional Assessment Additional comments: Impression: Patient has cholelithiasis even though the gallbladder is not very distended Plan Plan: We shall arrange for cholecystectomy if the patient is willing. I am not sure that was what caused the pain but her gallstones need to be removed at her convenience.
--- NOTE | 2024-03-14 20:36 | PC.NURSE ---
MD Riddle came and seen and talked to the pts, pt will be NPO after midnight.
[2024-03-14] MEDS: ACETAMINOPHEN 325 MG TABLET 650 MG PO (23:45)
[2024-03-15] VITALS (16 sets, daily range): BP systolic 129–155; BP diastolic 68–78; PULSE 60–73; RESP 15–99; TEMP 36.2–37; O2SAT 93–99; BMI 37.0
[2024-03-15 06:19] LABS: Basophils % (Auto) 0 % (0-2.5); Eosinophils # (Auto) 0.2 Thou/mm3 (0.0-0.5); Eosinophils % (Auto) 3 % (0-10); Hematocrit 36.5 % (36.0-46.0); Hemoglobin 12.3 g/dL (12.0-16.0); Immature Granulocytes % (Auto) 0 % (0-0); Immature Granulocytes Auto 0.01 Thou/mm3 (0.00-0.00); Lymphocytes # (Auto) 1.5 Thou/mm3 (1.0-4.8); Lymphocytes % (Auto) 32 % (10-50); Mean Corpuscular HGB Conc 33.7 g/dl (31.0-37.0); Mean Corpuscular Hemoglobin 30.5 pg (25.0-35.0); Mean Corpuscular Volume 91 fL (80-100); Monocytes # (Auto) 0.6 Thou/mm3 (0.0-0.8); Monocytes % (Auto) 12 % (0-12); Neutrophils # (Auto) 2.4 Thou/mm3 (1.8-7.7); Neutrophils % (Auto) 52 % (37-80); Nucleated Red Blood Cell % 0 /100 WBC (0); Platelet Count 154 Thou/mm3 (140-440); RDW Standard Deviation 42.2 fL (36.4-46.3); Red Blood Count 4.03 Miln/mm3 (4.00-5.20); White Blood Count 4.7 Thou/mm3 (3.6-11.0)
[2024-03-15 06:42] LABS: Alanine Aminotransferase 11 U/L (10-49); Albumin, Serum 3.6 gm/dL (3.4-4.8); Albumin/Globulin Ratio 1.5 (1.2-2.2); Alkaline Phosphatase 65 U/L (46-116); Anion Gap 7 (7-16); Aspartate Amino Transferase 17 U/L (0-34); BUN/Creatinine Ratio 16 Ratio (12-20); Bilirubin,Total 0.7 mg/dL (0.3-1.2); Blood Urea Nitrogen 11 mg/dL (9-23); Calcium 8.9 mg/dL (8.3-10.6); Calcium (Corrected) 9.2 mg/dL (8.5-10.1); Carbon Dioxide 27.9 mMol/L (20.0-31.0); Chloride 107 mMol/L (98-107); Creatinine (Component) 0.7 mg/dL (0.6-1.3); Estimated Creatinine Clearance 71.7 mL/min (>60); Globulin 2.4 gm/dL (2.3-3.5); Glucose 92 mg/dL (74-106); Osmolality,Calculated 282 (275-295); Phosphorous 2.4 mg/dL (2.4-5.1); Potassium 3.6 mMol/L (3.4-5.1); Sodium 142 mMol/L (136-145); eGFR > 60 See Note
[2024-03-15] MEDS: PANTOPRAZOLE INJ 40 MG VIAL IVP (08:34)
--- NOTE | 2024-03-15 09:53 | PC.SS ---
Follow up note: Pending surgery with Dr. Riddle. Pt will return home upon dc.
--- NOTE | 2024-03-15 10:22 | CHAP ---
Patient expressed gratitude for visit and prayer.
--- NOTE | 2024-03-15 13:28 | PD.SURPROG ---
Documentation for date of: 03/15/24 Subjective Subjective Narrative: The patient does not have any more pain. She is passing stool and flatus. Exam Vital Signs Temp Pulse Resp BP Pulse Ox O2 Del Method 98.6 F 66 20 139/78 H 95 Room Air 03/15/24 11:10 03/15/24 12:00 03/15/24 11:10 03/15/24 11:10 03/15/24 11:10 03/15/24 11:10 Her vital signs are normal Routine Abdominal Exam Comments: Examination of the abdomen is negative Assessment & Plan Assessment Additional comments: Impression: Cholelithiasis Rule out bowel obstruction Hypertension Plan Plan: I am not sure this patient indeed had any small bowel obstruction. She seems to have had a pain in the upper abdomen radiating to the back and she has gallstones which may be causing that. No significant small bowel dilatation was documented in this woman. The gallbladder stone may be incidental but it is something that I would suggest removal. I told her the option of laparoscopic cholecystectomy now or at a later date because at this time she does not have any pain. Patient has discussed with the children and is agreeable to go ahead with surgery now rather than coming back as an outpatient because she is worried about another episode of pain. The severe pain she had in the upper abdomen was so bad that the patient does not want to experience the once again. I have therefore scheduled her for laparoscopic cholecystectomy. I explained the procedure in detail including potential complications like bile duct injury bleeding injury to the bowel requiring further surgery etc. Patient also was told that she may require open cholecystectomy in case the laparoscopic approach fails. She is agreeable and we are scheduling her for surgery today
--- NOTE | 2024-03-15 14:15 | PD.RESPRO ---
Documentation for date of: 03/15/24 Subjective Subjective Interval history: Patient was seen and examined at bedside this AM. No acute exents overnight. Patient currently NPO, adequate urine output and mentation is at baseline. Patient endorses improvement of abdominal pain and no further episodes of vomiting. Patient was incidentally found to have cholelithiasis on abdomen/pelvis CT as well as gallbladder ultrasound. General surgery, Dr Gross was consulted and suspects that cholecystitis very unlikely at this point but possible that patient had colicky pain due to an obstructed stone that may have passed. Inpatient versus outpatient cholecystectomy was discussed with patient who opted for inpatient management. Patient scheduled for cholecystectomy today. Exam Vital Signs Temp Pulse Resp BP Pulse Ox O2 Del Method 98.6 F 66 20 139/78 H 95 Room Air 03/15/24 11:10 03/15/24 12:00 03/15/24 11:10 03/15/24 11:10 03/15/24 11:10 03/15/24 11:10 Narrative Exam Constitutional Alert, oriented x 3 and comfortable. Elderly female HEENT Vision grossly intact. Patent nares. Trachea midline Respiratory Chest normal on inspection and clear auscultation bilaterally Cardiovascular S1 and S2 audible, RRR. No murmurs carotid bruit. No gross JVD. Abdominal Soft, obese and nontender to palpation in all quadrants. Bowel sounds present. Genitourinary No bladder tenderness, no flank pain. Normal to palpation Musculoskeletal Extremities tone within normal limits. Trace lower extremity edema with bilateral varicose veins seen Neurological CN II - XII grossly intact. Extremity motor and sensation grossly intact. Skin Warm, dry and intact. No apparent lesions. Psychiatric Patient has good affect, is cooperative Objective Labs 03/16/24 05:35 03/16/24 05:35 Labs: Laboratory Results - last 24 hr 03/15/24 05:01 WBC 4.7 RBC 4.03 Hgb 12.3 Hct 36.5 MCV 91 MCH 30.5 MCHC 33.7 RDW Std Deviation 42.2 Plt Count 154 Neut % (Auto) 52 Lymph % (Auto) 32 [place] % (Auto) 12 Eos % (Auto) 3 Baso % (Auto) 0 Neut # (Auto) 2.4 Lymph # (Auto) 1.5 [place] # (Auto) 0.6 Eos # (Auto) 0.2 Baso # (Auto) 0.0 Immature Gran # (Auto) 0.01 H Absolute Nucleated RBC 0.00 Immature Gran % 0 Nucleated RBC % 0 Sodium 142 Potassium 3.6 Chloride 107 Carbon Dioxide 27.9 Anion Gap 7 BUN 11 Creatinine 0.7 Estim Creat Clear Calc 71.7 eGFR > 60 BUN/Creatinine Ratio 16 Glucose 92 Calculated Osmolality 282 Calcium 8.9 Corrected Calcium 9.2 Phosphorus 2.4 Magnesium 2.0 Total Bilirubin 0.7 AST 17 ALT 11 Alkaline Phosphatase 65 Total Protein 6.0 Albumin 3.6 Globulin 2.4 Albumin/Globulin Ratio 1.5 Quality Measures Quality Measures none Advance care planning discussed with:: patient Assessment & Plan Assessment Current Active Medications: Generic Name Dose Route Start Last Admin Trade Name Freq PRN Reason Stop Dose Admin Acetaminophen 650 mg 03/14/24 23:26 03/14/24 23:45 Acetaminophen 325 Mg Tablet PO 04/13/24 23:25 650 mg Q6HR PRN Administration Pain and Fever >101 Albuterol/Ipratropium 3 ml 03/13/24 13:39 Albuterol/Ipratropium (Duoneb) Rt Allegra 3 Ml Nebu INH 04/12/24 13:38 Q4HR PRN SHORTNESS OF BREATH OR WHEEZE Heparin Sodium (Porcine) 5,000 unit 03/13/24 21:00 03/15/24 08:35 Heparin Sod Inj 5000 Unit/Ml Vial SC 03/27/24 20:59 Not Given BID ARIADNE Labetalol HCl 5 mg 03/13/24 17:15 Labetalol Inj 5 Mg/Ml Vial 20 Ml IVP 04/12/24 17:14 Q10MIN PRN SBP >180 Morphine Sulfate 2 mg 03/13/24 13:39 Morphine Sulf Inj 10 Mg/Ml Vial IVP 03/18/24 13:38 Q4HR PRN PAIN SCALE 7-10 (Severe Ondansetron HCl 4 mg 03/13/24 13:39 03/13/24 20:37 Ondansetron Inj 2 Mg/Ml Inj 2 Ml IV 04/12/24 13:38 4 mg Q6H PRN Administration NAUSEA OR VOMITING Protocol Pantoprazole Sodium 40 mg 03/14/24 09:00 03/15/24 08:34 Pantoprazole Inj 40 Mg Vial IVP 04/13/24 08:59 40 mg QDAY ARIADNE Administration Sennosides 1 tab 03/14/24 11:30 02/03/25 08:34 Senna Tablet PO 04/13/24 11:29 Not Given QDAY [facility] Protocol Plan 73-year-old female with past medical history significant for essential hypertension, varicose veins, solitary left kidney, atrial flutter?paroxysmal not on beta-blockers presenting with a chief complaint of vomiting and abdominal pain. Patient will be admitted for workup and management of early SBO. 1. Cholelithiasis 2. SBO, ruled out 3. Intractable vomiting?resolving Patient presented with 2 episodes of vomiting and abdominal pain for [address] Abd/P initially showed suspicion for SBO along with cholelithiasis and gallbladder wall thickening U/S Gallbladder showed: Multiple gallstones Gallbladder wall 0.2 cm no edema Common bile duct 0.3 cm Pancreatic head 2.1 cm Liver 13.4 cm no liver lesions. Normal hepatopedal portal venous flow. Patent IVC Gastrograffin test ruled out SBO and NG tube discontinued Plan: ?N.p.o. ? General surgery, Dr Gross was consulted and suspects that cholecystitis very unlikely at this point but possible that patient had colicky pain due to an obstructed stone that may have passed. ?Inpatient versus outpatient cholecystectomy was discussed with patient who opted for inpatient management. Patient scheduled for cholecystectomy today. 4. Essential hypertension Home lisinopril 10 mg p.o. daily Plan: ?Holding home medications ?Labetalol 5 Mg IV every 10 minutes as needed for SBP greater than 180 5. Atrial flutter?paroxysmal EKG on admission significant for sinus rhythm, low voltage complexes in precordial leads, rate [address] changes. Patient currently normal, sinus rhythm Patient was Previously on atenolol but was discontinued last year by election watcher, Dr. Stanley due to her going bradycardic. Plan: ?Telemetry monitoring ?Continue DVT prophylaxis 6. Solitary left kidney Chronic medical condition Plan: Avoid nephrotoxic agents 7. Bilateral lower extremity varicose veins Chronic medical condition Plan: Continue outpatient follow-up with vascular surgeon Health maintenance: Disposition: Cholecystectomy today by Dr Gross. Diet: N.p.o. Lines: pIVs GI Prophylaxis: Pantoprazole Thrombo Prophylaxis: Heparin 5000 IU SC twice daily Code status: FULL CODE Plan of care discussed with Attending Dr. Kwadwo England MD PGY 1 Attending Provider Attestation/Addendum I have discussed and was present for the essential components of the history, physical examination, diagnosis, and treatment plan with the resident. I agree with the patient's care as documented by the resident and amended herein by me. Seferino Burkett DO. Although this document has been carefully reviewed, there may still be some phonetic and other typographical errors. These errors are purely grammatical due to imperfections in the software program and should not be construed in any way to compromise the substance of the patient's medical care during this visit.
--- NOTE | 2024-03-15 15:32 | ESOP_ITS ---
Date of Procedure 03/15/24 Pre Op Diagnosis Symptomatic cholelithiasis Post Op Diagnosis Same Procedure Laparoscopic cholecystectomy Findings Patient was found to have 2 large gallstones with extensive adhesions over the gallbladder but no acute cholecystitis Procedure Description After endotracheal anesthesia was given the patient was placed in supine position and the abdomen was prepped with chloroprep solution and draped in a sterile manner. After time out was performed I injected a few cc of of half percent Marcaine with epinephrine below the umbilicus and I made an incision for about 3 cm in length. The fascia was cleaned and Veress needle was inserted to create a pneumoperitoneum up to 15 mmHg. Then introduced a 12 mm trocar and a 10 mm camera through the fascia and I inspected the intra-abdominal organs as well as the gallbladder and the liver. Another 5 mm trocar was inserted in the epigastric region under direct vision after injecting some local anesthesia. At this time the patient was kept in reverse Trendelenburg position with the left lateral tilt. The third 5 mm trocar was inserted over the mid axillary line under direct vision and a Miguel and Gabriela grasper was used to hold the fundus of the gallbladder. The retraction was carried out by the captain assistant moving the fundus of the gallbladder towards the right shoulder of the patient to create enough traction. I placed a another 5 mm trocar in the midaxillary line just lateral to the rectus muscle under direct vision. I used a fenestrated grasper to retract the neck of the gallbladder laterally towards the patient's right hip. The Calot's triangle was exposed and I achieved the critical view of safety as follows: I dissected out the fatty tissue from the hepatocystic triangle and cleared this area. I also dissected inferior and posterior to the gallbladder to identify the cystic duct and the gallbladder wall. Then superiorly I dissected along the cystic plate up to lower one third third of the gallbladder to lift the gallbladder from the liver. At this time I confirmed that only 2 structures entering the gallbladder were cystic artery and the cystic duct. The common duct was seen distally but no dissection was carried out around the duct. I did not see any need for operative cholangiogram in this patient. The cystic duct was clipped doubly and then divided and cystic artery was similarly dealt with. Then the gallbladder was removed from the liver bed using Harmonic donis to control the small blood vessels as the dissection proceeded. Then the gallbladder was from the liver bed completely and delivered through the umbilical port using an Endopouch. The liver bed was coagulated with cautery to obtain satisfactory hemostasis. The trocars were pulled out from the abdominal cavity and the fascia at the umbilical incision was closed with interrupted 0 Ethibond. Subcutaneous tissues was closed with 3- 0 chromic and injected a few cc of half percent Marcaine with epinephrine and the skin was closed with interrupted 4-0 Monocryl subcuticular stitches at all the trocar sites. Dressing was applied with 2 x 2 and Tegaderm. Patient tolerated the procedure well and returned to recovery room in stable condition. Anesthesia GETA Pathology / specimen Other Estimated Blood Loss 75 Condition Stable Disposition PACU Surgeon Carlo Gross MD Surgical Staff Operation Date: 03/15/24 13:15 Case Staff PLANT ETIOLOGIST: Damian Page PLANT ETIOLOGIST: Miguel Quintana RNfree lance artist: Rosa M Hernández RNfree lance artist: Emperatriz Benoit
--- NOTE | 2024-03-15 15:35 | SUR.PHASEI ---
1535: Pt. AAOx4, vitals stable, breathing unlabored, no complaint of pain or nausea, x4 dressing to ABD CDI, no active bleed noted, report received from MD Page and Amos TINAJERO.
[2024-03-15] MEDS: ONDANSETRON INJ 2 MG/ML INJ 2 ML 4 MG IV (16:08)
[2024-03-15] MEDS: fentaNYL CIT INJ 50 mCg/ML AMP 2ML 25 MCG IV (16:08)
--- NOTE | 2024-03-15 16:20 | SUR.PHASEI ---
1620: Pt. AAOx4, vitals stable, breathing unlabored, no complaint of pain or nausea, dressing to ABD CDI, no active bleed noted, pt. tolerated sips of soda well, gave report to Garima TINAJERO prior to transfer to room 353, family made aware of transfer to room.
[2024-03-15] MEDS: HEPARIN SOD INJ 5000 UNIT/ML VIAL SC (20:42)
[2024-03-16] VITALS (8 sets, daily range): BP systolic 127–142; BP diastolic 68–83; PULSE 62–88; RESP 16–98; TEMP 36.3–36.7; O2SAT 91–98
[2024-03-16 06:14] LABS: Basophils % (Auto) 0 % (0-2.5); Eosinophils % (Auto) 0 % (0-10); Hematocrit 36.7 % (36.0-46.0); Hemoglobin 12.5 g/dL (12.0-16.0); Immature Granulocytes % (Auto) 0 % (0-0); Immature Granulocytes Auto 0.02 Thou/mm3 (0.00-0.00); Lymphocytes # (Auto) 0.6 Thou/mm3 (1.0-4.8); Lymphocytes % (Auto) 9 % (10-50); Mean Corpuscular HGB Conc 34.1 g/dl (31.0-37.0); Mean Corpuscular Hemoglobin 30.1 pg (25.0-35.0); Mean Corpuscular Volume 88 fL (80-100); Monocytes # (Auto) 0.5 Thou/mm3 (0.0-0.8); Monocytes % (Auto) 8 % (0-12); Neutrophils # (Auto) 5.3 Thou/mm3 (1.8-7.7); Neutrophils % (Auto) 83 % (37-80); Nucleated Red Blood Cell % 0 /100 WBC (0); Platelet Count 153 Thou/mm3 (140-440); RDW Standard Deviation 40.4 fL (36.4-46.3); Red Blood Count 4.15 Miln/mm3 (4.00-5.20); White Blood Count 6.4 Thou/mm3 (3.6-11.0)
[2024-03-16 06:34] LABS: Alanine Aminotransferase 33 U/L (10-49); Albumin, Serum 3.9 gm/dL (3.4-4.8); Albumin/Globulin Ratio 1.6 (1.2-2.2); Alkaline Phosphatase 71 U/L (46-116); Anion Gap 9 (7-16); Aspartate Amino Transferase 39 U/L (0-34); BUN/Creatinine Ratio 17 Ratio (12-20); Bilirubin,Total 0.5 mg/dL (0.3-1.2); Blood Urea Nitrogen 10 mg/dL (9-23); Calcium 8.9 mg/dL (8.3-10.6); Carbon Dioxide 26.2 mMol/L (20.0-31.0); Chloride 103 mMol/L (98-107); Creatinine (Component) 0.6 mg/dL (0.6-1.3); Estimated Creatinine Clearance 81.7 mL/min (>60); Globulin 2.5 gm/dL (2.3-3.5); Glucose 131 mg/dL (74-106); Magnesium 1.7 mg/dL (1.6-2.6); Osmolality,Calculated 276 (275-295); Phosphorous 2.9 mg/dL (2.4-5.1); Sodium 138 mMol/L (136-145); Total Protein 6.4 gm/dL (5.7-8.2); eGFR > 60 See Note
[2024-03-16] MEDS: ACETAMINOPHEN 325 MG TABLET 650 MG PO (07:49)
[2024-03-16] MEDS: PANTOPRAZOLE INJ 40 MG VIAL IVP (08:34)
[2024-03-16] MEDS: HEPARIN SOD INJ 5000 UNIT/ML VIAL SC (08:35)
[2024-03-16] MEDS: SENNA TABLET 1 TAB PO (08:37)
--- NOTE | 2024-03-16 10:17 | PD.SURPROG ---
Documentation for date of: 03/16/24 Subjective Subjective Brief History: Patient is feeling better other than incisional pain Narrative: Patient is feeling better other than incisional pain Exam Vital Signs Temp Pulse Resp BP Pulse Ox O2 Del Method FiO2 97.3 F 69 20 142/68 H 95 Room Air 2 03/16/24 07:50 03/16/24 07:50 03/16/24 07:50 03/16/24 07:50 03/16/24 07:50 03/16/24 07:50 03/15/24 15:50 Her vital signs are normal Routine Abdominal Exam Comments: Abdominal examination is negative Results Results: Laboratory Laboratory Narrative: Her lab results are within normal limits Assessment & Plan Assessment Additional comments: Impression: Stable recovery following laparoscopic cholecystectomy Plan Plan: We shall discharge patient today Procedures Procedures Laparoscopic cholecystectomy
--- NOTE | 2024-03-16 13:56 | ESDS_ITS ---
<Statement entered by Mauricio Oreilly MD - 03/16/24 16:05> Agree with plan and examination finding on the note below. Patient seen and examined at bedside today. Labs and imaging reviewed. Patient care discussed with my attending and co-resident . Planned Discharge Date 03/16/24 DS: Providers Provider Date of admission: 03/13/24 13:39 Primary care physician: Sara Xiao MD Admitting Provider: Uzair Orozco MD Attending Provider on Admission: Ken Burkett DO Consults: 03/14/24 08:00 Consult to General Surgery Routine Comment: SBO series negative; CT wall thick+free fluid Consulting Provider: Carlo Gross Attending Provider on DC: Rosales England MD Discharging Provider: Rosales England MD DS: Diagnosis Problem List Completed Was Problem List Reviewed/Reconciled?: Yes Hospital Course Hospital Course Hospital course: 73-year-old female with past medical history significant for essential hypertension, varicose veins, solitary left kidney, atrial flutter?paroxysmal not on beta-blockers presenting with a chief complaint of vomiting and abdominal pain. Patient will be admitted for workup and management of early SBO. CT findings suggestive of early SBO which resolved after small bowel series. Patient had a bowel movement the following day after admission and her abdominal pain and vomiting also resolved. CT Abd/P initially showed suspicion for SBO along with cholelithiasis and gallbladder wall thickening U/S Gallbladder showed: Multiple gallstones Gallbladder wall 0.2 cm no edema Common bile duct 0.3 cm Pancreatic head 2.1 cm Liver 13.4 cm no liver lesions. Normal hepatopedal portal venous flow. Patent IVC Her incidental finding of gallstones without obstruction or cholecystitis was treated with a laparoscopic cholecystectomy. General surgery, Dr Gross was consulted and the procedure was performed without any complications. No signs of necrosis or infection were found intraoperatively. He recommended patient follow a low-fat diet and follow-up with him in his office within 2-3 weeks of discharge. All patient's labs are now returning to baseline. Patient is now clinically stable and fit for discharge to home. Discharge diagnoses: 1. Cholelithiasis s/p laparoscopic cholecystectomy 03/15/2024 2. Small bowel obstruction?ruled out 3. Intractable vomiting?resolved 4. Essential hypertension 5. Atrial flutter?paroxysmal 6. Solitary left kidney 7. Bilateral lower extremity varicose veins Discharge plan: - Please follow a Low fat diet - Follow up with your PCP within 1 week of discharge - Follow up with surgeon Dr. Riddle within 2 weeks of discharge. - If you experience any new, worsening or persistent symptoms either call your pcp, dial 911 or present to the emergency department We are grateful to be able to participate in Mrs. Sotomayor's care. We wish her the best. Plan of care discussed with Attending Dr. Burkett and PGY3 Dr. Denilson England MD PGY 1 Time Spent with Patient Time attestation: Total time spent providing and/or coordinating discharge services: Time spent: Greater than 30 minutes (36) Exam Vital Signs Temp Pulse Resp BP Pulse Ox O2 Del Method FiO2 97.5 F 71 18 127/70 96 Room Air 2 03/16/24 11:43 03/16/24 11:43 03/16/24 11:43 03/16/24 11:43 03/16/24 11:43 03/16/24 11:43 03/15/24 15:50 Narrative Exam Constitutional Alert, oriented x 3 and comfortable. Elderly female HEENT Vision grossly intact. Patent nares. Trachea midline Respiratory Chest normal on inspection and clear auscultation bilaterally Cardiovascular S1 and S2 audible, RRR. No murmurs carotid bruit. No gross JVD. Abdominal Soft, obese, sites of laparoscopy noted with clean and dry bandages. Mildly tender to palpation at sites. Bowel sounds present Genitourinary No bladder tenderness, no flank pain. Normal to palpation Musculoskeletal Extremities tone within normal limits. Trace lower extremity edema with bilateral varicose veins seen Neurological CN II - XII grossly intact. Extremity motor and sensation grossly intact. Skin Warm, dry and intact. No apparent lesions. Psychiatric Patient has good affect, is cooperative Discharge Plan Plan Patient Disposition: HOME (Self Care) Disposition Comment: [place] Care Plan Goals: - Please follow a Low fat diet - Follow up with your PCP within 1 week of discharge - Follow up with surgeon Dr. Riddle within 2 weeks of discharge. - If you experience any new, worsening or persistent symptoms either call your pcp, dial 911 or present to the emergency department Prescriptions/Referrals Prescriptions/Med Rec: No Action atenolol [Tenormin] 25 MG tablet 25 mg PO QAM Qty: 0 ibuprofen 600 MG tablet 600 mg PO Q8HR PRN (Reason: PAIN) Qty: 30 0RF lisinopril 10 mg tablet 10 mg PO QDAY Patient Comments: TAKE 1 TABLET BY MOUTH EVERY DAY Referrals: Carlo Gross MD [Physician] - Sara Xiao MD [Primary Care Provider] - Patient/Caregiver Discharge Instructions Education Materials: Cholecystectomy Laparoscopic Dc Print Language: Armenian Stand Alone Forms: Tracy Award Info., Patient Portal Info Letter, Work/Release Restrictions, DC from Surgery Discharge Order Discharge Orders: Discharge (Routine); Ordered 03/16/24 Ordered By: Rosales England Quality Discharge Quality Measures VTE prophylaxis Attestestation Attestation I have discussed and was present for the essential components of the discharge history, physical examination, diagnosis, and discharge treatment plan with the resident. I agree with the patient's discharge care as documented by the resident and amended herein by me. Seferino Burkett DO. The patient understood all discharge instructions, all questions were answered satisfactorily. The patient was instructed to return to the Emergency Department is symptoms worsened or persisted. Patient was stable, afebrile, tolerating p.o. intake and ambulatory following laparoscopic cholecystectomy at time of discharge, patient directed to follow-up with Dr. Riddle in a few weeks following discharge for evaluation. All questions answered, see resident's note above for additional details. Although this document has been carefully reviewed, there may still be some phonetic and other typographical errors. These errors are purely grammatical due to imperfections in the software program and should not be construed in any way to compromise the substance of the patient's medical care during this visit.
[2024-03-19 06:42] LABS: Helicobacter pylori Ag, Stool* NOT DETECTED (NOT DETECTED)
== END 2024-03-16 12:44 | disposition home or self-care (01) ==
LOC: SERX 03-13 06:49 → SERHOLD 03-13 14:08 → S3NX 03-15 09:29 → SERHOLD 03-15 11:45
PROVIDERS: Emergency Medicine; Physician Assistant; Surgery; Admitting Provider Internal Medicine; Emergency Provider Emergency Medicine; PCP Family Medicine; Visit Provider Student in an Organized Health Care Education/Training Program
PROC: 0FT44ZZ Resection of Gallbladder, Percutaneous Endoscopic Approach (ICD-10-PCS; CPT 47562; principal; 2024-03-15 13:00)
DX: K80.20 Calculus of gallbladder without cholecystitis without obstruction (principal); I48.92 Unspecified atrial flutter; I10 Essential (primary) hypertension; Z90.710 Acquired absence of both cervix and uterus; I83.93 Asymptomatic varicose veins of bilateral lower extremities; Q60.0 Renal agenesis, unilateral; K66.0 Peritoneal adhesions (postprocedural) (postinfection); Z01.810 Encounter for preprocedural cardiovascular examination
CPT/HCPCS: 47562; 36415; 71045; 74177; 74250; 76705; 80053; 80061; 80307; 81001; 83013; 83014; 83036; 83605; 83690; 83735; 84100; 84443; 84484; 85025; 87338; 93005; 94664; 96361; 96372; 96374; 96375; 99285; A4217; A4649; G0378; J0131; J0694; J1100; J1643; J2270; J2405; J2470; J2704; J3010; J3490; J7030; Q9967; A9270; J1805

== ENCOUNTER → 2024-05-06 | Outpatient (CLI) | payer OTHER, SELFPAY ==
--- NOTE | 2024-05-06 10:29 | XR_ITS ---
Examination: PA lateral chest 2 views TECHNIQUE: Upright PA lateral chest 2 views Exam date and time: May 06, 2024 1059 hours Comparison March 13, 2024 INDICATIONS: Coughing beginning one month ago. FINDINGS: Normal heart size. Lungs are clear. The osseous structures are intact IMPRESSION: No active disease
[2024-05-06 11:40] LABS: Collection Type, Urine Clean Catch
[2024-05-06 12:16] LABS: Basophils % (Auto) 1 % (0-2.5); Eosinophils # (Auto) 0.1 Thou/mm3 (0.0-0.5); Eosinophils % (Auto) 2 % (0-10); Hematocrit 41.6 % (36.0-46.0); Immature Granulocytes % (Auto) 0 % (0-0); Immature Granulocytes Auto 0.02 Thou/mm3 (0.00-0.00); Lymphocytes # (Auto) 1.3 Thou/mm3 (1.0-4.8); Lymphocytes % (Auto) 18 % (10-50); Mean Corpuscular HGB Conc 33.7 g/dl (31.0-37.0); Mean Corpuscular Volume 92 fL (80-100); Monocytes # (Auto) 0.5 Thou/mm3 (0.0-0.8); Monocytes % (Auto) 7 % (0-12); Neutrophils # (Auto) 5.3 Thou/mm3 (1.8-7.7); Neutrophils % (Auto) 72 % (37-80); Nucleated Red Blood Cell % 0 /100 WBC (0); Platelet Count 203 Thou/mm3 (140-440); RDW Standard Deviation 44.8 fL (36.4-46.3); Red Blood Count 4.51 Miln/mm3 (4.00-5.20); White Blood Count 7.4 Thou/mm3 (3.6-11.0)
[2024-05-06 12:25] LABS: Bilirubin,Urine Negative (Negative); Blood,Urine Negative (Negative); Clarity,Urine Clear (Clear/Hazy); Color,Urine Lt-Yellow (Lt Yel-Yel); Glucose, Urine Negative (Negative); Hyaline Casts,Urine < 1 /hpf (0-1); Ketones,Urine Negative (Negative); Leukocyte Esterase,Urine Negative (Negative); Nitrite,Urine Negative (Negative); PH,Urine 6.5 (5.0-7.0); Protein,Urine Negative (Neg - Trace); RBC,Urine 1 /hpf (0-3); Specific Gravity,Urine 1.011 (1.001-1.035); Squamous Epithelial Cell,Urine 1 /hpf (0-5); Urobilinogen,Urine Negative mg/dL (0.0-1.0); WBC,Urine 1 /hpf (0-5)
[2024-05-06 12:27] LABS: Alanine Aminotransferase 19 U/L (10-49); Albumin, Serum 4.2 gm/dL (3.4-4.8); Albumin/Globulin Ratio 1.8 (1.2-2.2); Alkaline Phosphatase 88 U/L (46-116); Anion Gap 9 (7-16); Aspartate Amino Transferase 18 U/L (0-34); BUN/Creatinine Ratio 18 Ratio (12-20); Bilirubin,Total 0.6 mg/dL (0.3-1.2); Blood Urea Nitrogen 14 mg/dL (9-23); Calcium 9.7 mg/dL (8.3-10.6); Calcium (Corrected) 9.7 mg/dL (8.5-10.1); Carbon Dioxide 28.2 mMol/L (20.0-31.0); Chloride 103 mMol/L (98-107); Creatinine (Component) 0.8 mg/dL (0.6-1.3); Globulin 2.3 gm/dL (2.3-3.5); Glucose 103 mg/dL (74-106); Osmolality,Calculated 279 (275-295); Phosphorous 3.6 mg/dL (2.4-5.1); Potassium 3.9 mMol/L (3.4-5.1); Sodium 140 mMol/L (136-145); Total Protein 6.5 gm/dL (5.7-8.2); eGFR > 60 See Note
[2024-05-07 12:01] LABS: Cocci Serology, IgM Negative (Negative)
[2024-05-09 13:38] LABS: Cocci Serology, IgG Negative (Negative)
== END | disposition home or self-care (01) ==
PROVIDERS: PCP Family Medicine; Referring Provider Internal Medicine; Visit Provider Nurse Practitioner Family
DX: R05.9 Cough, unspecified (principal); N18.1 Chronic kidney disease, stage 1
CPT/HCPCS: 36415; 71046; 80053; 81001; 84100; 85025; 86331; 86635

== ENCOUNTER → 2024-07-08 | Outpatient (CLI) | payer OTHER, SELFPAY ==
--- NOTE | 2024-07-08 15:00 | XR_ITS ---
Examination: Retroperitoneal ultrasound, complete Technique: Multiple high resolution grayscale images of the retroperitoneum obtained, including kidneys and bladder. Exam date and time:July 08, 2024 1511 hours INDICATIONS: History atrophic right kidney FINDINGS: Right kidney 5.5 cm cortex 0.4 cm Lower pole cyst 18 mm Left kidney 12.2 cm renal cortex 1.1 cm No bladder mass or bladder calculi, bladder prevoid volume 427 cc IMPRESSION: Atrophic right kidney with severe renal parenchymal scar formation
== END | disposition home or self-care (01) ==
LOC: CDIM 14:37
PROVIDERS: PCP Family Medicine; Referring Provider Internal Medicine; Visit Provider Internal Medicine
DX: N26.1 Atrophy of kidney (terminal) (principal); N28.89 Other specified disorders of kidney and ureter
CPT/HCPCS: 76770

== ENCOUNTER → 2024-10-06 | Outpatient (CLI) | payer OTHER, SELFPAY ==
--- NOTE | 2024-10-06 | XR_ITS ---
Examination: Lumbar spine, 5 views Technique: Lumbar spine AP, lateral, coned lateral lower lumbar spine, bilateral obliques 5 views Exam date and time: October 06, 2024, 1122 hrs. Indications: Patient fell 5 days ago with injury to lower back, lower back pain. Findings: Significant osteopenia. Intact pedicles. Moderate diffuse facet arthropathy. Moderate narrowing hip joints. No acute lumbar fracture. Impression: No acute lumbar fracture.
--- NOTE | 2024-10-06 | XR_ITS ---
Examination: Thoracic spine 3 views Technique: AP lateral coned lateral upper dorsal spine 3 views Date and time: October 06, 2024, 11:28 AM Indications: Patient fell 5 days ago with injury to the mid back, mid back pain. Findings: Mild kyphosis dorsal spine. Moderate diffuse thoracic disc narrowing. No acute thoracic fracture. Impression: No acute thoracic fracture.
== END | disposition home or self-care (01) ==
LOC: CDIM 10:55
PROVIDERS: PCP Family Medicine; Referring Provider Family Medicine; Visit Provider Family Medicine
DX: S29.9XXA Unspecified injury of thorax, initial encounter (principal); S39.92XA Unspecified injury of lower back, initial encounter; W19.XXXA Unspecified fall, initial encounter
CPT/HCPCS: 72072; 72110

== ENCOUNTER → 2024-10-07 | Outpatient (CLI) | payer OTHER, SELFPAY ==
[2024-10-07 09:16] LABS: Collection Type, Urine Clean Catch
[2024-10-07 09:33] LABS: Basophils # (Auto) 0.0 Thou/mm3 (0.0-0.2); Basophils % (Auto) 1 % (0-2.5); Eosinophils # (Auto) 0.1 Thou/mm3 (0.0-0.5); Eosinophils % (Auto) 3 % (0-10); Hematocrit 41.1 % (36.0-46.0); Hemoglobin 13.8 g/dL (12.0-16.0); Immature Granulocytes Auto 0.01 Thou/mm3 (0.00-0.00); Lymphocytes # (Auto) 1.2 Thou/mm3 (1.0-4.8); Lymphocytes % (Auto) 22 % (10-50); Mean Corpuscular HGB Conc 33.6 g/dl (31.0-37.0); Mean Corpuscular Hemoglobin 30.9 pg (25.0-35.0); Mean Corpuscular Volume 92 fL (80-100); Monocytes # (Auto) 0.5 Thou/mm3 (0.0-0.8); Monocytes % (Auto) 9 % (0-12); Neutrophils # (Auto) 3.4 Thou/mm3 (1.8-7.7); Neutrophils % (Auto) 65 % (37-80); Nucleated Red Blood Cell # 0.00 Thou/mm3 (0.00-0.00); Nucleated Red Blood Cell % 0 /100 WBC (0); Platelet Count 178 Thou/mm3 (140-440); RDW Standard Deviation 42.3 fL (36.4-46.3); Red Blood Count 4.46 Miln/mm3 (4.00-5.20); White Blood Count 5.3 Thou/mm3 (3.6-11.0)
[2024-10-07 09:45] LABS: Bilirubin,Urine Negative (Negative); Blood,Urine Negative (Negative); Clarity,Urine Clear (Clear/Hazy); Color,Urine Colorless (Lt Yel-Yel); Culture Indicated,Urine Not Indicated; Glucose, Urine Negative (Negative); Ketones,Urine Negative (Negative); Leukocyte Esterase,Urine Negative (Negative); Nitrite,Urine Negative (Negative); PH,Urine 6.5 (5.0-7.0); Protein,Urine Negative (Neg - Trace); RBC,Urine 4 /hpf (0-3); Specific Gravity,Urine 1.012 (1.001-1.035); Squamous Epithelial Cell,Urine 1 /hpf (0-5); Urobilinogen,Urine Negative mg/dL (0.0-1.0); WBC,Urine 2 /hpf (0-5)
[2024-10-07 10:01] LABS: Vitamin D 25 Hydroxy Total 30.8 ng/mL (7.3-40.2)
[2024-10-07 10:02] LABS: Alanine Aminotransferase 16 U/L (10-49); Albumin, Serum 4.0 gm/dL (3.4-4.8); Albumin/Globulin Ratio 1.9 (1.2-2.2); Alkaline Phosphatase 79 U/L (46-116); Anion Gap 11 (7-16); Aspartate Amino Transferase 18 U/L (0-34); BUN/Creatinine Ratio 26 Ratio (12-20); Bilirubin,Total 0.7 mg/dL (0.3-1.2); Blood Urea Nitrogen 21 mg/dL (9-23); Calcium 10.0 mg/dL (8.3-10.6); Calcium (Corrected) 10.0 mg/dL (8.5-10.1); Carbon Dioxide 27.5 mMol/L (20.0-31.0); Cardiac Risk Estimate 2.8 RATIO (3.7-5.6); Chloride 104 mMol/L (98-107); Cholesterol 215 mg/dL (132-200); Creatinine (Component) 0.8 mg/dL (0.6-1.3); Globulin 2.1 gm/dL (2.3-3.5); Glucose 90 mg/dL (74-106); Glucose Estimated Average 103 mg/dL (80-131); HDL Cholesterol 78 mg/dL (40-60); Hemoglobin A1C 5.2 % Hgb (4.8-6.0); LDL Cholesterol,Calculated 117 mg/dL (0-130); Osmolality,Calculated 286 (275-295); Potassium 3.9 mMol/L (3.4-5.1); Sodium 142 mMol/L (136-145); Thyroid Stimulating Hormone 3.11 uIU/mL (0.55-4.78); Total Protein 6.1 gm/dL (5.7-8.2); Triglycerides 101 mg/dL (30-150); eGFR > 60 See Note
[2024-10-07 10:05] LABS: Creatinine MALB Rnd Ur 36 mg/dL (30-125); Microalbumin Creat Ratio 61 mg/gCrea (<30); Microalbumin, Random Urine 22 mg/L (0-300)
== END | disposition home or self-care (01) ==
LOC: COPL 08:31
PROVIDERS: PCP Family Medicine; Referring Provider Nurse Practitioner Family; Visit Provider Nurse Practitioner Family
DX: Z00.00 Encounter for general adult medical examination without abnormal findings (principal); I10 Essential (primary) hypertension; E55.9 Vitamin D deficiency, unspecified
CPT/HCPCS: 36415; 80053; 80061; 81001; 82043; 82306; 82570; 83036; 84443; 85025

== ENCOUNTER → 2024-11-03 | Outpatient (CLI) | payer OTHER, SELFPAY ==
--- NOTE | 2024-11-03 09:30 | XR_ITS ---
Examination: Breast ultrasound, unilateral, right complete Date and time of exam: November 03, 2024, 0949 hours INDICATIONS: Mammogram February 16, 2024 14 mm focal asymmetry upper outer right breast posterior depth Technique: Real-time mitchell scale ultrasonographic imaging performed right breast including all 4 quadrants as well as nipple retroareolar and axillary region. Findings: Sonographic images right breast 10:00 cyst 4 x 5 mm No solid nodules IMPRESSION: BI-RADS Category 2: Benign findings
--- NOTE | 2024-11-03 10:00 | XR_ITS ---
Examination: Diagnostic digital mammography, unilateral, right Computer aided detection 3-D breast Tomosynthesis, unilateral Date and time of exam: November 03, 2024 0959 hours INDICATIONS: Mammogram February 16, 2024 14 mm focal asymmetry upper outer right breast posterior depth Technique: Nonmagnified MLO, CC views of the right breast have been obtained, reconstructed from 3-D Tomosynthesis images. R2 computer aided detection program utilized for evaluation of suspicious masses and/or abnormal calcifications. 3-D Tomosynthesis images obtained. Findings: The breast is heterogeneously dense, which may obscure small masses Focal asymmetry remains outer right breast on the CC view Impression: BI-RADS category 3: Probably benign findings Recommend continued 6 month follow-up right mammogram
== END | disposition home or self-care (01) ==
LOC: CDIM 09:27
PROVIDERS: PCP Family Medicine; Referring Provider Nurse Practitioner Family; Visit Provider Nurse Practitioner Family
DX: R92.331 Mammographic heterogeneous density, right breast (principal)
CPT/HCPCS: 76641; 77061; 77065; G0279

== ENCOUNTER → 2025-01-12 | Outpatient (CLI) | payer OTHER, SELFPAY | END | disposition home or self-care (01) | LOC: SLDO 14:55 | PROVIDERS: PCP Family Medicine; Referring Provider Nurse Practitioner Family; Visit Provider Nurse Practitioner Family | DX: N30.00 Acute cystitis without hematuria (principal) | CPT/HCPCS: 87086 ==